=== PATIENT | female | born 1990 | race Caucasian/White ===

== ENCOUNTER → 2016-09-20 | Outpatient (REF) | payer OTHER ==
[~2016-09-20] MED LIST: ACET50TA PO; IBUP80TA PO; VITAPRTA PO; ZYRT10TA2 PO
== END ==
LOC: M LAB REF 13:35
PROVIDERS: ATTEND Advanced Practice Midwife
DX: Z12.4 Encounter for screening for malignant neoplasm of cervix (principal)

== ENCOUNTER → 2016-09-21 | Outpatient (CLI) | payer OTHER ==
[2016-09-21 08:26] LABS: BASO # 0.1 K/mm3 (0.0-0.2); BASO % 1.5 % (0.0-1.0); EOS # 0.1 K/mm3 (0.0-0.50); EOS % 2.3 % (0.0-3.0); LARGE UNSTAINED CELL # 0.2 K/mm3 (0.0-0.4); LARGE UNSTAINED CELL % 3.4 % (0.0-4.0); LYMPH # 1.6 K/mm3 (1.5-6.5); LYMPH % 26.9 % (24.0-44.0); MEAN CORPUSCULAR HEMOGLOBIN 31.1 pg (27.0-33.0); MEAN CORPUSCULAR HGB CONC 34.2 g/dl (32.0-36.5); MEAN CORPUSCULAR VOLUME 91.1 fl (80.0-96.0); MONO # 0.3 K/mm3 (0.0-0.8); MONO % 6.4 % (0.0-5.0); NEUTROPHILS # 3.1 K/mm3 (1.8-7.7); NEUTROPHILS % 59.5 % (36.0-66.0); PLATELET COUNT, AUTOMATED 269 k/mm3 (150-450); RED CELL DISTRIBUTION WIDTH 12.6 % (11.5-14.5); WHITE BLOOD COUNT 5.2 K/mm3 (4.0-10.0)
[2016-09-21 08:48] LABS: THYROXINE (T4) 10.2 UG/DL (4.5-12.0)
== END ==
LOC: M LAB 07:40
PROVIDERS: ATTEND Advanced Practice Midwife
DX: C50.919 Malignant neoplasm of unspecified site of unspecified female breast (principal); Z13.820 Encounter for screening for osteoporosis; M81.0 Age-related osteoporosis without current pathological fracture

== ENCOUNTER → 2016-11-18 | Outpatient (REF) | payer OTHER | LOC: M LAB REF 10:29 | PROVIDERS: ATTEND Physician Assistant | DX: J02.9 Acute pharyngitis, unspecified (principal) ==

== ENCOUNTER 2017-01-21 15:17 | Emergency (ER) | payer OTHER ==
[~2017-01-21] VITALS: Ht 154.9 cm; Wt 63.5 kg
[2017-01-21] MEDS ORDERED: otc prenatal vit PO (15:35)
[2017-01-21] MEDS ORDERED: ZYRT10CA PO (15:35)
[2017-01-21] MEDS ORDERED: NS 1,000 ML IV SCH (17:40)
[2017-01-21] MEDS ORDERED: ONDANSETRON 4MG/2ML VIAL (J2405) IV ONE (17:45)
[2017-01-21 18:31] LABS: BASO % 0.5 % (0.0-1.0); EOS # 0.2 K/mm3 (0.0-0.50); EOS % 2.4 % (0.0-3.0); LARGE UNSTAINED CELL # 0.2 K/mm3 (0.0-0.4); LYMPH % 24.9 % (24.0-44.0); MEAN CORPUSCULAR HEMOGLOBIN 32.9 pg (27.0-33.0); MEAN CORPUSCULAR HGB CONC 35.9 g/dl (32.0-36.5); MEAN CORPUSCULAR VOLUME 91.6 fl (80.0-96.0); MONO # 0.4 K/mm3 (0.0-0.8); MONO % 5.4 % (0.0-5.0); NEUTROPHILS # 5.2 K/mm3 (1.8-7.7); NEUTROPHILS % 64.8 % (36.0-66.0); PLATELET COUNT, AUTOMATED 287 k/mm3 (150-450); RED CELL DISTRIBUTION WIDTH 12.2 % (11.5-14.5)
[2017-01-21 18:34] LABS: INR 0.94
[2017-01-21 18:43] LABS: CONTROL LINE HCG INT CTR LINE PRESENT
[2017-01-21 18:56] LABS: ALBUMIN 3.8 GM/DL (3.2-5.2); ALBUMIN/GLOBULIN RATIO 1.15 (1.00-1.93); ALKALINE PHOSPHATASE 52 U/L (45-117); ALT/SGPT 21 U/L (12-78); ANION GAP 8 MEQ/L (8-16); AST/SGOT 22 U/L (15-37); BILIRUBIN,DIRECT < 0.1 MG/DL (0.0-0.2); BILIRUBIN,TOTAL 0.4 MG/DL (0.2-1.0); BLOOD UREA NITROGEN 12 MG/DL (7-18); CALCIUM LEVEL 8.4 MG/DL (8.5-10.1); CARBON DIOXIDE LEVEL 27 MEQ/L (21-32); CHLORIDE LEVEL 104 MEQ/L (98-107); CREATININE FOR GFR 0.79 MG/DL (0.55-1.02); GLOMERULAR FILTRATION RATE > 60.0 (>60); GLUCOSE, FASTING 89 MG/DL (70-105); POTASSIUM SERUM 3.8 MEQ/L (3.5-5.1); SODIUM LEVEL 139 MEQ/L (136-145); TOTAL PROTEIN 7.1 GM/DL (6.4-8.2)
[2017-01-21] MEDS ORDERED: ISOVUE-370 76% 100ML VIAL (Q9967) As Ordered ONE (19:13)
--- NOTE | 2017-01-21 19:40 | REP ---
Clinical: Acute lower abdominal pain. Technique: Axial contrast enhanced images from the lung bases to the pubic symphysis using 100 ml Isovue 370 intravenous contrast material with coronal and sagittal re-formations. Findings: A 2.1 cm rim enhancing left ovarian cyst is appreciated with surrounding fluid and small amount of fluid extending into the pelvis likely related to patient's symptoms and compatible with involuting, possibly ruptured ovarian cyst. The uterus and right adnexa appear normal. Lung bases are clear. Visualized heart and pericardium are normal. Liver, spleen, pancreas, gallbladder, bilateral adrenal glands and kidneys are normal. The enteric system is without obstruction or acute inflammatory process. Normal terminal ileum and appendix identified in the right lower quadrant. Pelvis demonstrates normal bladder and findings as described above. No ascites. No free air. No retroperitoneal or intraperitoneal adenopathy. Vasculature including abdominal aorta is normal. Surrounding musculoskeletal structures without focal osseous abnormality. Impression: 1. A 2.1 cm rim enhancing left ovarian cyst with surrounding fluid and trace fluid extending to the pelvis most compatible with involuting, possibly ruptured ovarian cyst and likely related to patient's symptoms. 2. Remainder examination appears normal. Signed by Mickey Martinez MD 01/21/2017 07:31 P
[2017-01-21 19:50] VITALS: BP 116/75
[2017-01-21] MEDS ORDERED: OXYCODONE/APAP 5MG/325MG(BULK FOR ED) 1 TABLET PO ONE (20:00)
[2017-01-21] MEDS ORDERED: ZOFR4TAB3 PO (20:03)
[2017-01-21] MEDS ORDERED: PERC5TAB6 PO (20:03)
== END 2017-01-21 20:15 | disposition home or self-care (01) ==
LOC: M ED 17:29
DX: N83.201 Unspecified ovarian cyst, right side (principal)
CPT/HCPCS: 74177; 80048; 80076; 81001; 83690; 84703; 85025; 85610; 86850; 86900; 86901; 87086; 96361; 96374; 99283; J2405; Q9967

== ENCOUNTER → 2017-05-23 | Outpatient (CLI) | payer OTHER ==
[~2017-05-23] MED LIST changes: +PERC5TAB12 PO; +ZOFR4TAB3 PO; +ZYRT10CA PO; +otc prenatal vit PO
--- NOTE | 2017-05-23 08:26 | REP ---
Pelvic ultrasound including transabdominal, endovaginal and Doppler ultrasound assessment: Comparison is 08/02/2016. The bladder is adequately distended. The uterus is anteverted and normal size measuring 7.4 x 3.4 x 3.4 cm. The myometrium has a mildly heterogeneous. The endometrium is not thickened measuring 6.5 mm. The ovaries are normal size. Right ovary measures 3.3 x 2.1 x 2.7 cm. The left ovary measures 2.9 x 1.3 x 2.2 cm. With Doppler assessment there is vascular flow in both ovaries with the Doppler resistive index of the intraparenchymal arteries on the left measuring 0.53 and on the right 0.60. There are a few small follicles in each ovary. No dominant ovarian mass or cyst. There is no free fluid in the pelvis. Impression: Essentially negative pelvic ultrasound. Signed by Silverio Waller MD 05/23/2017 08:18 A
== END ==
LOC: M RAD 06:44
PROVIDERS: ATTEND Advanced Practice Midwife
DX: R10.9 Unspecified abdominal pain (principal)

== ENCOUNTER → 2017-06-19 | Outpatient (CLI) | payer OTHER | LOC: M LAB 12:20 | PROVIDERS: ATTEND Advanced Practice Midwife | DX: N91.2 Amenorrhea, unspecified (principal) ==

== ENCOUNTER 2017-11-02 07:49 | Emergency (ER) | payer OTHER ==
[2017-11-02] MEDS: ACETAMINOPHEN 325 MG TAB PO (09:25)
== END 2017-11-02 10:37 | disposition home or self-care (01) ==
LOC: M ED 07:49
DX: M25.532 Pain in left wrist (principal)
CPT/HCPCS: 73110

== ENCOUNTER → 2017-11-15 | Outpatient (CLI) | payer OTHER ==
[2017-11-15 13:17] LABS: BASO % 0.2 % (0.0-1.0); EOS # 0.2 10^3/uL (0.0-0.50); EOS % 2.1 % (0.0-3.0); HEMATOCRIT 38.2 % (36.0-47.0); HEMOGLOBIN 13.8 g/dl (12.0-16.0); IMMATURE GRANULOCYTE % 0.3 % (0-3.0); LYMPH # 1.9 10^3/uL (1.5-6.5); LYMPH % 18.4 % (24.0-44.0); MEAN CORPUSCULAR HEMOGLOBIN 31.9 pg (27.0-33.0); MEAN CORPUSCULAR HGB CONC 36.1 g/dl (32.0-36.5); MEAN CORPUSCULAR VOLUME 88.4 fl (80.0-96.0); MONO # 0.7 10^3/uL (0.0-0.8); NEUTROPHILS # 7.6 10^3/uL (1.8-7.7); PLATELET COUNT, AUTOMATED 302 10^3/uL (150-450); RED BLOOD COUNT 4.32 10^6/uL (4.00-5.40); RED CELL DISTRIBUTION WIDTH 12.2 % (11.5-14.5); WHITE BLOOD COUNT 10.5 10^3/uL (4.0-10.0)
[2017-11-15 13:55] LABS: TOTAL PROTEIN,RANDOM URINE 9.1 MG/DL (0.0-12.0)
[2017-11-15 13:57] LABS: ALT/SGPT 24 U/L (12-78); AST/SGOT 14 U/L (7-37); BILIRUBIN,TOTAL 0.4 MG/DL (0.2-1.0); CREATININE FOR GFR 0.45 MG/DL (0.55-1.30); GLOMERULAR FILTRATION RATE > 60.0 (>60); LDH LACTATE DEHYDROGENASE 171 U/L (84-246); URIC ACID 1.9 MG/DL (2.6-6.0)
[2017-11-15 13:59] LABS: RUBELLA IgG QUALITATIVE IMMUNE (IMMUNE)
[2017-11-15 14:00] LABS: HBsAg Prenatal NEGATIVE (NEGATIVE)
[2017-11-15 14:28] LABS: HIV 1&2 SCREEN CENTAUR NEGATIVE (NEGATIVE)
[2017-11-15 15:00] LABS: CHLAMYDIA DNA AMPLIFICATION NEGATIVE (NEGATIVE); GC DNA AMPLIFICATION NEGATIVE (NEGATIVE)
== END ==
LOC: M LAB 12:36
DX: Z36.89 Encounter for other specified antenatal screening (principal); Z3A.10 10 weeks gestation of pregnancy
CPT/HCPCS: 84460

== ENCOUNTER 2017-12-21 07:23 | Emergency (ER) | payer OTHER ==
[2017-12-21] MEDS: NS 1,000 ML IV (08:00)
[2017-12-21] MEDS: ONDANSETRON 4MG/2ML VIAL (J2405) IV (08:20)
[2017-12-21 08:37] LABS: BASO % 0.2 % (0.0-1.0); EOS # 0.1 10^3/uL (0.0-0.50); EOS % 0.5 % (0.0-3.0); HEMATOCRIT 35.8 % (36.0-47.0); HEMOGLOBIN 12.8 g/dl (12.0-15.5); IMMATURE GRANULOCYTE % 0.5 % (0-3.0); LYMPH # 0.9 10^3/uL (1.5-6.5); LYMPH % 6.9 % (24.0-44.0); MEAN CORPUSCULAR HEMOGLOBIN 31.8 pg (27.0-33.0); MEAN CORPUSCULAR HGB CONC 35.8 g/dl (32.0-36.5); MEAN CORPUSCULAR VOLUME 88.8 fl (80.0-96.0); MONO # 0.5 10^3/uL (0.0-0.8); MONO % 3.8 % (0.0-5.0); NEUTROPHILS # 11.3 10^3/uL (1.8-7.7); NEUTROPHILS % 88.1 % (36.0-66.0); PLATELET COUNT, AUTOMATED 250 10^3/uL (150-450); RED BLOOD COUNT 4.03 10^6/uL (4.00-5.40); RED CELL DISTRIBUTION WIDTH 13.2 % (11.5-14.5); WHITE BLOOD COUNT 12.8 10^3/uL (4.0-10.0)
[2017-12-21 08:42] LABS: KETONE, URINE AUTO RFX 1+ mg/dL (NEGATIVE); MUCUS, URINE RFX SMALL (NEGATIVE); NITRITE, URINE AUTO RFX NEGATIVE (NEGATIVE); RBC, URINE AUTO RFX 2 /HPF (0-3); SPECIFIC GRAVITY UR AUTO RFX 1.028 (1.002-1.035); SQUAM EPITHELIAL CELL UR AURFX 9 /HPF (0-6); WBC, URINE AUTO RFX 2 /HPF (0-3)
[2017-12-21 08:45] LABS: LEUKOCYTE ESTERASE UR AUTO RFX 1+ (NEGATIVE)
[2017-12-21 09:01] LABS: ALBUMIN 3.2 GM/DL (3.2-5.2); ALBUMIN/GLOBULIN RATIO 0.91 (1.00-1.93); ALKALINE PHOSPHATASE 60 U/L (45-117); ALT/SGPT 22 U/L (12-78); AMYLASE 28 U/L (25-115); ANION GAP 9 MEQ/L (8-16); AST/SGOT 15 U/L (7-37); BILIRUBIN,DIRECT 0.2 MG/DL (0.0-0.2); BILIRUBIN,TOTAL 0.8 MG/DL (0.2-1.0); BLOOD UREA NITROGEN 7 MG/DL (7-18); CALCIUM LEVEL 8.3 MG/DL (8.5-10.1); CARBON DIOXIDE LEVEL 24 MEQ/L (21-32); CHLORIDE LEVEL 105 MEQ/L (98-107); CREATININE FOR GFR 0.52 MG/DL (0.55-1.30); GLOMERULAR FILTRATION RATE > 60.0 (>60); GLUCOSE, FASTING 87 MG/DL (70-100); LIPASE 62 U/L (73-393); POTASSIUM SERUM 3.8 MEQ/L (3.5-5.1); SODIUM LEVEL 138 MEQ/L (136-145); TOTAL PROTEIN 6.7 GM/DL (6.4-8.2)
== END 2017-12-21 10:10 | disposition home or self-care (01) ==
LOC: M ED 07:23
DX: O21.9 Vomiting of pregnancy, unspecified (principal); O99.89 Other specified diseases and conditions complicating pregnancy, childbirth and the puerperium; R19.7 Diarrhea, unspecified; O16.2 Unspecified maternal hypertension, second trimester; Z3A.17 17 weeks gestation of pregnancy; Z79.899 Other long term (current) drug therapy; Z88.5 Allergy status to narcotic agent
CPT/HCPCS: J2405

== ENCOUNTER → 2018-01-01 | Outpatient (CLI) | payer OTHER | LOC: M RAD 13:47 | DX: Z34.82 Encounter for supervision of other normal pregnancy, second trimester (principal) | CPT/HCPCS: 76816 ==

== ENCOUNTER → 2018-01-14 | Outpatient (CLI) | payer OTHER | LOC: M RAD 07:16 | DX: Z34.82 Encounter for supervision of other normal pregnancy, second trimester (principal); Z3A.20 20 weeks gestation of pregnancy | CPT/HCPCS: 76816 ==

== ENCOUNTER → 2018-02-18 | Outpatient (REF) | payer OTHER ==
[2018-02-18 14:48] LABS: TOTAL PROTEIN,RANDOM URINE 32.1 MG/DL (0.0-12.0)
== END ==
LOC: M LAB REF 13:04
DX: O10.012 Pre-existing essential hypertension complicating pregnancy, second trimester (principal); Z3A.00 Weeks of gestation of pregnancy not specified

== ENCOUNTER → 2018-02-18 | Outpatient (CLI) | payer OTHER ==
[2018-02-18 09:45] LABS: HEMATOCRIT 33.7 % (36.0-47.0); HEMOGLOBIN 11.7 g/dl (12.0-15.5); MEAN CORPUSCULAR HEMOGLOBIN 31.5 pg (27.0-33.0); MEAN CORPUSCULAR HGB CONC 34.7 g/dl (32.0-36.5); MEAN CORPUSCULAR VOLUME 90.8 fl (80.0-96.0); PLATELET COUNT, AUTOMATED 289 10^3/uL (150-450); RED BLOOD COUNT 3.71 10^6/uL (4.00-5.40); RED CELL DISTRIBUTION WIDTH 13.5 % (11.5-14.5); WHITE BLOOD COUNT 12.2 10^3/uL (4.0-10.0)
[2018-02-18 10:47] LABS: ALT/SGPT 21 U/L (12-78); AST/SGOT 13 U/L (7-37); BILIRUBIN,TOTAL 0.3 MG/DL (0.2-1.0); CREATININE FOR GFR 0.49 MG/DL (0.55-1.30); GLOMERULAR FILTRATION RATE > 60.0 (>60); LDH LACTATE DEHYDROGENASE 206 U/L (84-246); URIC ACID 2.7 MG/DL (2.6-6.0)
== END ==
LOC: M SMT 08:28
DX: O10.012 Pre-existing essential hypertension complicating pregnancy, second trimester (principal)
CPT/HCPCS: 84460

== ENCOUNTER → 2018-03-08 | Outpatient (CLI) | payer BC ==
[2018-03-08 12:51] LABS: BASO % 0.1 % (0.0-1.0); EOS # 0.2 10^3/uL (0.0-0.50); EOS % 1.2 % (0.0-3.0); HEMATOCRIT 33.7 % (36.0-47.0); HEMOGLOBIN 11.4 g/dl (12.0-15.5); IMMATURE GRANULOCYTE % 0.9 % (0-3.0); LYMPH # 1.8 10^3/uL (1.5-6.5); LYMPH % 12.5 % (24.0-44.0); MEAN CORPUSCULAR HEMOGLOBIN 31.4 pg (27.0-33.0); MEAN CORPUSCULAR HGB CONC 33.8 g/dl (32.0-36.5); MEAN CORPUSCULAR VOLUME 92.8 fl (80.0-96.0); MONO # 0.8 10^3/uL (0.0-0.8); MONO % 5.2 % (0.0-5.0); NEUTROPHILS # 11.5 10^3/uL (1.8-7.7); NEUTROPHILS % 80.1 % (36.0-66.0); PLATELET COUNT, AUTOMATED 267 10^3/uL (150-450); RED BLOOD COUNT 3.63 10^6/uL (4.00-5.40); RED CELL DISTRIBUTION WIDTH 13.9 % (11.5-14.5); WHITE BLOOD COUNT 14.4 10^3/uL (4.0-10.0)
[2018-03-08 13:38] LABS: GLUCOSE CHALLENGE TEST 1 HOUR 98 MG/DL (LESS THAN 140)
[2018-03-10 08:56] LABS: TYPE AND SCREEN 1 1
== END ==
LOC: M WUC 08:08
DX: O10.012 Pre-existing essential hypertension complicating pregnancy, second trimester (principal)
CPT/HCPCS: 82950

== ENCOUNTER → 2018-03-26 | Outpatient (CLI) | payer BC, OTHER | LOC: M RAD 07:17 | DX: O10.012 Pre-existing essential hypertension complicating pregnancy, second trimester (principal); Z3A.31 31 weeks gestation of pregnancy | CPT/HCPCS: 76816 ==

== ENCOUNTER 2018-04-03 06:48 | Outpatient (CLI) | payer BC, OTHER ==
[2018-04-03] MEDS ORDERED: ONDANSETRON 4 MG ORAL DISINTEGRATING TAB (Q0162 PER 1MG) PO (07:30)
[2018-04-03] MEDS: FIORICET TAB PO (07:54)
[2018-04-03] MEDS: LABETALOL 100 MG TAB PO (07:55)
[2018-04-03 08:06] LABS: BASO % 0.1 % (0.0-1.0); EOS # 0.1 10^3/uL (0.0-0.50); HEMATOCRIT 34.1 % (36.0-47.0); HEMOGLOBIN 11.7 g/dl (12.0-15.5); LYMPH # 1.5 10^3/uL (1.5-4.5); LYMPH % 11.4 % (24.0-44.0); MEAN CORPUSCULAR HEMOGLOBIN 31.4 pg (27.0-33.0); MEAN CORPUSCULAR HGB CONC 34.3 g/dl (32.0-36.5); MEAN CORPUSCULAR VOLUME 91.4 fl (80.0-96.0); MONO # 0.9 10^3/uL (0.0-0.8); MONO % 6.6 % (0.0-5.0); NEUTROPHILS # 10.7 10^3/uL (1.8-7.7); NEUTROPHILS % 79.9 % (36.0-66.0); PLATELET COUNT, AUTOMATED 233 10^3/uL (150-450); RED BLOOD COUNT 3.73 10^6/uL (4.00-5.40); RED CELL DISTRIBUTION WIDTH 14.3 % (11.5-14.5); WHITE BLOOD COUNT 13.5 10^3/uL (4.0-10.0)
[2018-04-03 08:26] LABS: ALT/SGPT 19 U/L (12-78); AST/SGOT 14 U/L (7-37); BILIRUBIN,TOTAL 0.3 MG/DL (0.2-1.0); CREATININE FOR GFR 0.49 MG/DL (0.55-1.30); GLOMERULAR FILTRATION RATE > 60.0 (>60); LDH LACTATE DEHYDROGENASE 186 U/L (84-246); URIC ACID 3.3 MG/DL (2.6-6.0)
[2018-04-03 08:31] LABS: TOTAL PROTEIN,RANDOM URINE 27.9 MG/DL (0.0-12.0)
== END 2018-04-03 09:10 | disposition home or self-care (01) ==
LOC: M LDO 06:48
DX: O99.89 Other specified diseases and conditions complicating pregnancy, childbirth and the puerperium (principal); Z3A.31 31 weeks gestation of pregnancy; R51 Headache; Z87.59 Personal history of other complications of pregnancy, childbirth and the puerperium; O13.3 Gestational [pregnancy-induced] hypertension without significant proteinuria, third trimester
CPT/HCPCS: 59025

== ENCOUNTER → 2018-04-15 | Outpatient (CLI) | payer BC, OTHER | LOC: M RAD 09:10 | DX: O10.013 Pre-existing essential hypertension complicating pregnancy, third trimester (principal); Z3A.33 33 weeks gestation of pregnancy | CPT/HCPCS: 76816 ==

== ENCOUNTER → 2018-04-28 | Outpatient (REF) | payer OTHER | LOC: M LAB REF 13:20 | DX: O10.013 Pre-existing essential hypertension complicating pregnancy, third trimester (principal) ==

== ENCOUNTER → 2018-05-06 | Outpatient (CLI) | payer BC, OTHER | LOC: M RAD 09:18 | DX: O10.012 Pre-existing essential hypertension complicating pregnancy, second trimester (principal) ==

== ENCOUNTER → 2018-11-12 | Outpatient (REF) | payer OTHER ==
[~2018-11-12] MED LIST changes: -ACET50TA PO; +COLA100C5 PO; +FIOR1CAP PO; +LABE10TAB PO; +MAPA500T2 PO; +MOTR200T44 PO; +TUMS500C PO; +ZOFR4TAB14 PO; -ZOFR4TAB3 PO; +ZYRT10CA5 PO; -ZYRT10TA2 PO
[2018-11-12 10:23] LABS: BASO % 0.5 % (0.0-1.0); EOS # 0.2 10^3/uL (0.0-0.50); EOS % 3.1 % (0.0-3.0); HEMATOCRIT 41.8 % (36.0-47.0); HEMOGLOBIN 14.3 g/dl (12.0-15.5); LYMPH # 1.5 10^3/uL (1.5-4.5); LYMPH % 25.3 % (24.0-44.0); MEAN CORPUSCULAR HEMOGLOBIN 30.2 pg (27.0-33.0); MEAN CORPUSCULAR HGB CONC 34.2 g/dl (32.0-36.5); MEAN CORPUSCULAR VOLUME 88.2 fl (80.0-96.0); MONO # 0.4 10^3/uL (0.0-0.8); MONO % 7.5 % (0.0-5.0); NEUTROPHILS # 3.7 10^3/uL (1.8-7.7); NEUTROPHILS % 63.4 % (36.0-66.0); PLATELET COUNT, AUTOMATED 322 10^3/uL (150-450); RED BLOOD COUNT 4.74 10^6/uL (4.00-5.40); WHITE BLOOD COUNT 5.8 10^3/uL (4.0-10.0)
[2018-11-12 10:38] LABS: ALBUMIN 4.2 GM/DL (3.2-5.2); ALT/SGPT 24 U/L (12-78); BILIRUBIN,TOTAL 0.8 MG/DL (0.2-1.0); BLOOD UREA NITROGEN 15 MG/DL (7-18); CALCIUM LEVEL 8.6 MG/DL (8.5-10.1); CARBON DIOXIDE LEVEL 27 MEQ/L (21-32); CHLORIDE LEVEL 106 MEQ/L (98-107); CHOLESTEROL LEVEL 143 MG/DL (<200); CHOLESTEROL RISK RATIO 3.325 (<5); CREATININE FOR GFR 0.84 MG/DL (0.55-1.30); GLOMERULAR FILTRATION RATE > 60.0 (>60); GLUCOSE, FASTING 73 MG/DL (70-100); HDL CHOLESTEROL 43 MG/DL (>40); LDL CHOLESTEROL 88 MG/DL (<100); NON-HDL-C 100 MG/DL; POTASSIUM SERUM 4.1 MEQ/L (3.5-5.1); SODIUM LEVEL 140 MEQ/L (136-145); TOTAL PROTEIN 7.3 GM/DL (6.4-8.2); TRIGLYCERIDES LEVEL 59 MG/DL (<150)
[2018-11-12 10:46] LABS: HEMOGLOBIN A1c 4.8 %
== END ==
LOC: M LAB REF 09:40
PROVIDERS: ATTEND Physician Assistant
DX: I10 Essential (primary) hypertension (principal)

== ENCOUNTER → 2020-01-27 | Outpatient (CLI) | payer BC, OTHER ==
--- NOTE | 2020-01-28 04:15 | REP ---
Clinical: Epigastric pain. Technique: Real time santos scale ultrasound examination using curved array transducer. Findings: Liver and visualized pancreas are normal in contour, size, echogenicity without focal hepatic or pancreatic lesion identified. Gallbladder is normal and without gallstones, wall thickening, or pericholecystic fluid. No biliary ductal dilatation is appreciated and the common bile duct measures 3.6 mm diameter. Right kidney is normal in reniform shape without hydronephrosis and measures 9.7 x 4.5 x 4.7 cm. Visualized portions of the abdominal aorta appear normal. No ascites. Impression: Normal limited abdominal ultrasound. Electronically Signed by Mickey Martinez MD 01/28/2020 04:07 A
== END ==
LOC: M RAD 07:57
PROVIDERS: ATTEND Surgery
DX: R10.13 Epigastric pain (principal)

== ENCOUNTER → 2020-05-18 | Outpatient (CLI) | payer BC, OTHER ==
[2020-05-18 16:14] LABS: BASO % 0.5 % (0.0-1.0); EOS # 0.2 10^3/uL (0.0-0.5); HEMATOCRIT 37.4 % (36.0-47.0); HEMOGLOBIN 12.8 g/dl (12.0-15.5); LYMPH % 22.6 % (24.0-44.0); MEAN CORPUSCULAR HEMOGLOBIN 32.1 pg (27.0-33.0); MEAN CORPUSCULAR HGB CONC 34.2 g/dl (32.0-36.5); MEAN CORPUSCULAR VOLUME 93.7 fl (80.0-96.0); MONO # 0.8 10^3/uL (0.0-0.8); MONO % 8.9 % (0.0-5.0); NEUTROPHILS # 5.8 10^3/uL (1.5-8.5); NEUTROPHILS % 65.5 % (36.0-66.0); PLATELET COUNT, AUTOMATED 281 10^3/uL (150-450); RED BLOOD COUNT 3.99 10^6/uL (4.00-5.40); WHITE BLOOD COUNT 8.8 10^3/uL (4.0-10.0)
[2020-05-18 16:36] LABS: CREATININE,RANDOM URINE 21.9 MG/DL; TOTAL PROTEIN,RANDOM URINE 5.8 MG/DL (0.0-12.0)
[2020-05-18 16:37] LABS: ALT/SGPT 24 U/L (12-78); BILIRUBIN,TOTAL 0.3 MG/DL (0.2-1.0); CREATININE FOR GFR 0.71 MG/DL (0.55-1.30); GLOMERULAR FILTRATION RATE > 60.0 (>60); LDH LACTATE DEHYDROGENASE 190 U/L (84-246); URIC ACID 2.1 MG/DL (2.6-6.0)
[2020-05-18 17:26] LABS: HEPATITIS C VIRUS ABY INDEX 0.1 INDEX (<0.8)
[2020-05-18 17:27] LABS: HIV 1&2 SCREEN CENTAUR NEGATIVE (NEGATIVE)
[2020-05-18 19:12] LABS: CHLAMYDIA DNA AMPLIFICATION NEGATIVE (NEGATIVE); GC DNA AMPLIFICATION NEGATIVE (NEGATIVE)
== END ==
LOC: M LAB 15:39
PROVIDERS: ATTEND Advanced Practice Midwife
DX: Z34.91 Encounter for supervision of normal pregnancy, unspecified, first trimester (principal); Z3A.00 Weeks of gestation of pregnancy not specified

== ENCOUNTER → 2020-08-09 | Outpatient (CLI) | payer BC ==
[~2020-08-09] MED LIST changes: +LABE100T4 PO; -LABE10TAB PO
--- NOTE | 2020-08-09 12:57 | REP ---
INDICATION: ANATOMY. TECHNIQUE: Real-time sonographic evaluation of the gravid uterus performed. FINDINGS: Estimated gestational age 19 weeks 0 days, EDC 01/03/2021. These measurements indicate appropriate growth. Presentation: Cephalic Placenta posterior, grade 1, without evidence of placenta previa. heart rate is recorded at 153 beats per minute. Amniotic fluid is subjectively normal. Closed cervical length is measured at 3.8 cm. Biometry chart: BPD: 43 mm, 19 weeks 1 days, 53rd percentile. HC: 167 mm, 19 weeks 3 days, 62nd percentile AC: 152 mm, 20 weeks 3 days, 81st percentile Femur length: 33 mm, 20 weeks 2 days, 81st percentile HC to AC ratio: 1.10, normal range 1.06-1.25. Estimated weight: 340g, over 97th percentile. anatomy: Cranium: Grossly normal Lateral Ventricles/Choroid Plexus: Grossly normal Posterior Fossa/Cerebellum: Grossly normal Nose/lips/profile: Grossly normal Four chamber heart: Grossly normal Right ventricular outflow tract: Grossly normal Left ventricular outflow tract: Grossly normal Left-sided stomach: Grossly normal Kidneys: There is bilateral pelviectasis, AP diameter of the renal pelves is 4 mm maximally. Ill-defined increased echogenicity in the pelvis could represent bowel. Recommend follow-up. Bladder: Grossly normal Cord Insertion: Grossly normal 3 vessel cord: Grossly normal Spine: Grossly normal IMPRESSION: Viable single intrauterine gestation as above. <Electronically signed by Silverio Ortiz > 08/09/20 [id number]
== END ==
LOC: M WHC 08:16
PROVIDERS: ATTEND Advanced Practice Midwife
DX: O10.012 Pre-existing essential hypertension complicating pregnancy, second trimester (principal); Z3A.19 19 weeks gestation of pregnancy

== ENCOUNTER → 2020-08-12 | Outpatient (CLI) | payer BC | LOC: M PLALAB 09:14 | PROVIDERS: ATTEND Advanced Practice Midwife | DX: O28.3 Abnormal ultrasonic finding on antenatal screening of mother (principal); Z3A.00 Weeks of gestation of pregnancy not specified ==

== ENCOUNTER → 2020-09-06 | Outpatient (CLI) | payer BC ==
--- NOTE | 2020-09-06 18:26 | REP ---
INDICATION: F/U ECHOGENICITY SEEN IN ABDOMEN COMPARISON: 08/09/2020 TECHNIQUE: Transabdominal obstetrical ultrasound with color Doppler evaluation. FINDINGS: Examination demonstrates a single live intrauterine in cephalic presentation. motion is identified by technologist. Placenta is noted posterior and grade 1 without evidence for placenta previa or abruption. Amniotic fluid volume is normal. Cervix measures 4.0 cm in length and appears closed.. Gestational age by LMP 23 weeks 0 days with ARMEN 01/03/2021. Gestational age by current measurements 24 weeks 1 day with ARMEN 12/26/2020. FHR equals 153 beats per minute. Estimated weight 659 grams (89thpercentile). Anatomical assessment demonstrates normal structures including normal appearance of the bilateral kidneys with mild pelviectasis in normal range. Previously identified echogenic area within the pelvis is not visualized and may have represented bowel. IMPRESSION: Single live intrauterine in cephalic presentation. No gross abnormalities are identified. <Electronically signed by Mickey Martinez > 09/06/20 [id number]
== END ==
LOC: M WHC 15:14
PROVIDERS: ATTEND Advanced Practice Midwife
DX: O10.012 Pre-existing essential hypertension complicating pregnancy, second trimester (principal); Z3A.24 24 weeks gestation of pregnancy

== ENCOUNTER → 2020-09-29 | Outpatient (CLI) | payer BC, OTHER ==
[2020-09-29 08:26] LABS: HEMATOCRIT 36.5 % (36.0-47.0); HEMOGLOBIN 12.2 g/dl (12.0-15.5); MEAN CORPUSCULAR HEMOGLOBIN 31.9 pg (27.0-33.0); MEAN CORPUSCULAR HGB CONC 33.4 g/dl (32.0-36.5); MEAN CORPUSCULAR VOLUME 95.3 fl (80.0-96.0); PLATELET COUNT, AUTOMATED 245 10^3/uL (150-450); RED BLOOD COUNT 3.83 10^6/uL (4.00-5.40); WHITE BLOOD COUNT 12.6 10^3/uL (4.0-10.0)
== END ==
LOC: M LAB 06:39
PROVIDERS: ATTEND Advanced Practice Midwife
DX: O10.012 Pre-existing essential hypertension complicating pregnancy, second trimester (principal); Z3A.00 Weeks of gestation of pregnancy not specified
CPT/HCPCS: 36415; 82950; 85027; 86850; 86900; 86901; J2790

== ENCOUNTER → 2020-11-08 | Outpatient (CLI) | payer BC ==
--- NOTE | 2020-11-08 10:10 | REP ---
INDICATION: ESSENTIAL HYPERTENSION,GROWTH,TC. COMPARISON: 09/06/2020. TECHNIQUE: Real-time sonographic evaluation of the gravid uterus performed. FINDINGS: Estimated gestational age is32 weeks 0 days, EDC 01/03/2021. Today's measurements indicate appropriate growth. Presentation: Cephalic Placenta posterior, grade 2, without evidence of placenta previa. heart rate is recorded at 161 beats per minute. Amniotic fluid is subjectively normal. TC 11.8, normal range 8.6-24.2. Closed cervical length is measured at 3.1 cm. Biometry chart: BPD: 80 mm, 31 weeks 6 days, 49th percentile. HC: 299 mm, 33 weeks 1 days, 66th percentile AC: 300 mm, 34 weeks 0 days, 80th percentile Femur length: 65 mm, 33 weeks 4 days, 74th percentile HC to AC ratio: 1.00, normal range 0.95-1.14. Estimated weight: 2225g, 86th percentile. IMPRESSION: Viable single intrauterine gestation as above. <Electronically signed by Silverio Ortiz > 11/08/20 [id number]
== END ==
LOC: M WHC 07:46
PROVIDERS: ATTEND Advanced Practice Midwife
DX: O10.019 Pre-existing essential hypertension complicating pregnancy, unspecified trimester (principal); Z3A.32 32 weeks gestation of pregnancy

== ENCOUNTER → 2020-11-24 | Outpatient (REF) | LOC: M LABSMTC 09:50 | PROVIDERS: ATTEND Pediatrics | DX: Z11.52 Encounter for screening for COVID-19 (principal) ==

== ENCOUNTER → 2020-11-28 | Outpatient (CLI) | payer BC ==
--- NOTE | 2020-11-28 16:49 | REP ---
INDICATION: HYPERTENSION,GROWTH,TC. COMPARISON: Comparison study November 08, 2020.. TECHNIQUE: Transabdominal obstetric sonography. FINDINGS: Scanning through the gravid uterus demonstrates a viable single intrauterine gestation in cephalic lie. motion is observed and heart rate is recorded at 155 beats per minute. A posterior placenta is seen, grade 2, without evidence of placenta previa. Closed cervical length is measured at 3.6 cm transabdominally. No extrauterine abnormality is observed. Amniotic fluid is subjectively normal. TC is normal 10.9 cm.. . Biometry chart: BPD 8.6 cm, 34 weeks 4 days Head circumference 33.4 cm, 38 weeks 1 day Abdominal circumference 36.3 cm, 40 weeks 1 day Femur length 7.0 cm, 35 weeks 6 days Humeral length 6.1 cm, 35 weeks 4 days HC AC ratio 0.92 (0.942 1.13) Cephalic index normal 0.70 Estimated weight 3543 g, 7 lb 12 oz, greater than 97th percentile for 34 weeks 6 days IMPRESSION: Viable single intrauterine gestation at 36 weeks 6 days by today's composite sonographic criteria. ARMEN by today's sonography December 20, 2020. No complication identified. Expected gestational age estimate based on known ARMEN of January 03, 2021 34 weeks 6 days. Estimated weight in 97 percentile. <Electronically signed by Dg Marley > 11/28/20 [id number]
== END ==
LOC: M WHC 08:30
PROVIDERS: ATTEND Advanced Practice Midwife
DX: O10.019 Pre-existing essential hypertension complicating pregnancy, unspecified trimester (principal); Z3A.34 34 weeks gestation of pregnancy

== ENCOUNTER → 2020-12-14 | Outpatient (CLI) | payer BC, OTHER | LOC: M LABSMTC 12:19 | PROVIDERS: ATTEND Specialist | DX: Z20.822 Contact with and (suspected) exposure to COVID-19 (principal); Z3A.37 37 weeks gestation of pregnancy ==

== ENCOUNTER → 2020-12-16 | Outpatient (CLI) | payer BC ==
--- NOTE | 2020-12-16 13:59 | REP ---
INDICATION: GROWTH/TC. TECHNIQUE: Transabdominal FINDINGS: Multiple ultrasonographic images of the gravid uterus shows a single living intrauterine gestation in the cephalic presentation. Doppler interrogation of the heart shows a heart rate of 155 beats per minute. The placenta is posterior and not low-lying. The subjective amniotic fluid volume is within normal limits. The calculated amniotic fluid index is 12.3 with an expected range of 7.4-24.2. BPD 9.0 cm (36 weeks 3 days) HC 33.4 cm (38 weeks 1 day) AC 37.7 cm (41 weeks 5 days) FL 7.4 cm (37 weeks 5 days) The estimated weight is 3886 g which is greater than the 97th percentile for 37 week 3 day gestational age. IMPRESSION: Single living intrauterine gestation as described above with an estimated gestational age of 38 weeks 4 days via composite criteria and an estimated date of delivery of 12/26/2020 based today's exam. <Electronically signed by Blaine Kuhn > 12/16/20 [id number]
== END ==
LOC: M WHC 12:59
PROVIDERS: ATTEND Advanced Practice Midwife
DX: O10.013 Pre-existing essential hypertension complicating pregnancy, third trimester (principal); Z3A.38 38 weeks gestation of pregnancy

== ENCOUNTER 2020-12-21 21:57 | Inpatient (IN) | payer BC, OTHER ==
[~2020-12-21] VITALS: Ht 154.9 cm; Wt 93.3 kg
[2020-12-21] MEDS ORDERED: METHYLERGONOVINE MALEATE 0.2 MG/ML VIAL (J2210) IM PRN (23:10)
[2020-12-21] MEDS ORDERED: miSOPROStol 50MCG 1/2 TABLET PO SCH (23:10)
[2020-12-21] MEDS ORDERED: OXYTOCIN DRIP 30 UNITS in IV 1 EA IV PRN (23:10)
[2020-12-21] MEDS ORDERED: LIDOCAINE 1% MDV 20ML VIAL INFIL PRN (23:10)
[2020-12-21 23:54] VITALS: BP 120/69
[2020-12-22] VITALS (32 sets, daily range): BP systolic 100–172; BP diastolic 46–105
[2020-12-22] MEDS ORDERED: LABETALOL 100MG TAB PO ONE (00:05)
[2020-12-22 00:06] LABS: HEMATOCRIT 37.4 % (36.0-47.0); HEMOGLOBIN 12.8 g/dl (12.0-15.5); MEAN CORPUSCULAR HEMOGLOBIN 30.8 pg (27.0-33.0); MEAN CORPUSCULAR HGB CONC 34.2 g/dl (32.0-36.5); MEAN CORPUSCULAR VOLUME 89.9 fl (80.0-96.0); PLATELET COUNT, AUTOMATED 232 10^3/uL (150-450); RED BLOOD COUNT 4.16 10^6/uL (4.00-5.40); WHITE BLOOD COUNT 13.3 10^3/uL (4.0-10.0)
[2020-12-22] MEDS ORDERED: diphenhydrAMINE 25MG CAP PO ONE (00:10)
[2020-12-22 00:18] LABS: ALT/SGPT 20 U/L (12-78); BILIRUBIN,TOTAL 0.4 MG/DL (0.2-1.0); CREATININE FOR GFR 0.41 MG/DL (0.55-1.30); GLOMERULAR FILTRATION RATE > 60.0 (>60); LDH LACTATE DEHYDROGENASE 199 U/L (84-246); URIC ACID 3.3 MG/DL (2.6-6.0)
[2020-12-22] MEDS ORDERED: OXYTOCIN DRIP 30 UNITS in IV 1 EA IV SCH ×2 (04:00→11:20)
[2020-12-22] MEDS ORDERED: LACTATED RINGER'S 1000 ML IV ONE (04:15)
[2020-12-22] MEDS: LR 1,000 ML IV SCH ×2 (04:16→08:05)
[2020-12-22] MEDS ORDERED: FENTANYL 2MCG/ML ROPIVACAINE 0.2% IN 0.9% NACL 100ML IVBAG As Ordered ONE (05:33)
[2020-12-22] MEDS ORDERED: LACTATED RINGER'S 1000 ML IV PRN (06:10)
[2020-12-22] MEDS ORDERED: NALOXONE INJ 0.4MG/1ML VIAL (J2310 PER 1MG) IV PRN (06:10)
[2020-12-22] MEDS ORDERED: diphenhydrAMINE 50MG/ML VIAL (J1200) IV PRN (06:10)
[2020-12-22] MEDS ORDERED: EPIDURAL COMMENT XX SCH (06:10)
[2020-12-22] MEDS ORDERED: EPIDURAL/PCA KEYS XX PRN (06:10)
[2020-12-22] MEDS ORDERED: REFRIGERATOR IV KEYS XX PRN (06:10)
[2020-12-22] MEDS ORDERED: FENTANYL/ROPIVACAINE/NACL BAG 100 ML EPIDURAL SCH (06:10)
[2020-12-22] MEDS ORDERED: ONDANSETRON 4MG/2ML VIAL IV PRN (06:10)
--- NOTE | 2020-12-22 08:13 | HPE ---
HISTORY AND PHYSICAL DATE OF ADMISSION: 12/21/2020 HISTORY OF PRESENT ILLNESS: Jase is a 30-year-old 3 para 2-0-0-2 at 38 and 1/7th weeks gestation, EDC of 01/03/2021 based on first trimester ultrasound. She presents to Labor and Delivery today for induction of labor due to chronic hypertension. Her hypertension has been well-controlled with Labetalol 100 mg p.o. b.i.d. She reports some occasional contractions, denies vaginal bleeding or leakage of fluid. The fetus has been active. Her care initiated at [facility], [place] in the first trimester has been appropriate throughout with reassuring antepartal testing as well as appropriate growth ultrasounds. OBSTETRIC HISTORY: In January 2015, 37 weeks, 7 pound, 10 ounce male, vaginal delivery, induction for preeclampsia. May 17, 2018, 38 weeks, 7 pound, 11 ounce female, vaginal delivery following an induction for gestational hypertension. OBSTETRIC LABS: A negative, antibody screen negative, syphilis negative, gonorrhea and chlamydia negative, hepatitis B surface antigen negative, hepatitis C antibody non-reactive, HIV negative, rubella immune, gestational diabetic screening is 90. Urine culture: No growth. GBS negative. She is to undergo noninvasive testing with panorama which demonstrated low risk aneuploidy female fetus. The patient was not aware of the sex. PAST MEDICAL HISTORY: Preeclampsia, chronic hypertension, gestational hypertension, childhood asthma, childhood varicella. PAST SURGICAL HISTORY: Knee surgery x2, elbow surgery, tonsillectomy. FAMILY HISTORY: Hypertension, high cholesterol, hyperlipidemia and thyroid disease. SOCIAL HISTORY: The patient is . She is a nonsmoker. She denies alcohol and drug use. No history of sexually transmitted infections. She denies a history of abuse, physical, sexual and emotional. CURRENT MEDICATIONS: 1. Labetalol 100 mg p.o. b.i.d. 2. vitamins. 3. Aspirin 81 mg daily. ALLERGIES: Codeine. OBJECTIVE: BP is 132/89. She is alert and oriented x3. heart rate is 150 with moderate variability, positive accelerations, negative decelerations, no __ or regular contractions. Her abdomen is gravid, cephalic presentation. Estimated weight 3800 grams. Sterile vaginal exam: 2 cm dilated, 50% effaced, -3 station, posterior and soft. No show with the exam. ASSESSMENT: Intrauterine at 38 and 1/7th weeks. heart rate Category 1, chronic hypertension. PLAN; Admit the patient to labor and delivery, out of bed ad waylon, regular diet at this time, saline lock, routine laboratories with the addition of preeclamptic profile. Plan to start Misoprostol 50 mcg p.o. for cervical ripening, may consider assisted rupture of membranes for labor augmentation, likely IV Pitocin for labor induction. The risks, benefits and alternatives have been reviewed with the patient and her . They have had all of their questions answered. She has been verbally consented for emergency surgery and blood products if they are necessary. I do anticipate cervical ripening, labor and a spontaneous vaginal delivery.
[2020-12-22] MEDS ORDERED: LABETALOL 200 MG TAB PO SCH (09:00)
[2020-12-22] MEDS: ePHEDrine SULFATE 25 MG/5 ML(5MG/ML) SYRINGE IV PRN ×3 (09:05→09:21)
--- NOTE | 2020-12-22 11:18 | DNPDOC ---
[facility] Delivery Note Delivery Note DATE OF DELIVERY: 12/22/2020 TIME OF : 1039 GENDER: Female APGARS: 8 and 9 WEIGHT: 4210 grams or 9 pounds 5ounces. LACERATIONS: 2MLL ANESTHESIA: epiduralnone ESTIMATED BLOOD LOSS: 300ml COUNTS: 5 laparotomy sponges accounted for prior to after delivery. 1 sharps removed from delivery field. DELIVERY NOTE: On on 12/22/2020 Mrs Hernandez, a 30-year-old 3 now para 3 had a spontaneous vaginal delivery of a liveborn female Apgars 8 and 9 weight was 9 lbs. 5 oz. or 4210 g. Head was delivered occiput anterior (OA), followed by delivery of the shoulders and corpus. was handed to mom with a good cry. Cord was clamped times two and was cut by support person under my direction. Placenta was then drained and delivered grossly intact. A premixed bag of 500 mL of normal saline with 30 units of Pitocin was then bolused along with uterine massage until the uterus was firm. On inspection there was a 2MLL that was repaired with 3-0 Vicryl. On reinspection, cervix, vagina, perineum was grossly intact and hemostatic. Mom and baby in recovery on stable condition. ABDELRAHMAN BERG MD. Dec 22, 2020 11:18
[2020-12-22] MEDS ORDERED: MOM 30ML SUSPENSION UDC PO PRN (11:20)
[2020-12-22] MEDS ORDERED: MEASLES,MUMPS,RUBELLA VACCINE INJ (MMR-II) (90707) SC SCH (11:20)
[2020-12-22] MEDS ORDERED: DIBUCAINE 1% OINTMENT 30GM TOP PRN (11:20)
[2020-12-22] MEDS ORDERED: METHYLERGONOVINE MALEATE 0.2 MG TAB PO PRN (11:20)
[2020-12-22] MEDS ORDERED: RHOGAM 300 MCG (1500 IU) INJ (J2790) IM SCH (11:20)
[2020-12-22] MEDS ORDERED: IBUPROFEN 600MG TAB PO PRN (11:20)
[2020-12-22] MEDS ORDERED: ANUSOL HC CREAM 30GM TOP PRN (11:20)
[2020-12-22] MEDS: IBUPROFEN 800 MG TAB PO PRN ×2 (14:03→22:23)
[2020-12-22] MEDS: ACETAMINOPHEN TAB 650MG DOSE (2X325MG) PO PRN ×2 (15:50→20:36)
[2020-12-22] MEDS ORDERED: SLF 3 ML SYR IV PRN (15:55)
[2020-12-22] MEDS: DOCUSATE SODIUM 100MG CAPSULE PO PRN (20:36)
[2020-12-22] MEDS: SLF 3 ML SYR IV SCH (20:37)
[2020-12-23] MEDS: ACETAMINOPHEN 500 MG TAB PO PRN ×3 (02:25→19:22)
[2020-12-23] MEDS: SLF 3 ML SYR IV SCH ×3 (05:31→22:00)
--- NOTE | 2020-12-23 05:33 | IPNPDOC ---
Progress Note Date of Service: Dec 23, 2020 Day#: 1 Progress Note SUBJECT: Doing well without complaints. Ambulating, voiding and pain is well-c ontrolled. Reports minimal lochia. OBJECTIVE: VITAL SIGNS: Within normal limits, afebrile. Alert and oriented times three. Abdomen: Fundus firm at U-2. Soft, NTTP. Ext: neg calf tenderness. ASSESSMENT: day #1 status post . Recovering in stable condition. PLAN: 1. Continue routine care 2. Discharge plans for tomorrow VS, I&O, 24H, Fishbone Vital Signs/I&O Vital Signs Date Time Temp Pulse Resp B/P (MAP) Pulse Ox O2 Delivery O2 Flow Rate FiO2 12/22/20 18:00 99.2 84 18 100/55 (70) 98 Room Air I&O- Last 24 Hours up to 6 AM 12/23/20 06:00 Intake Total 4100 ml Output Total 1200 ml Balance 2900 ml ABDELRAHMAN BERG MD. Dec 23, 2020 05:32
[2020-12-23] MEDS: IBUPROFEN 800 MG TAB PO PRN ×2 (05:52→15:15)
[2020-12-23 06:00] VITALS: BP 116/61
[2020-12-23] MEDS: PRENATAL VITAMINS CHEWABLE TABLET PO SCH (07:31)
[2020-12-23 18:00] VITALS: BP 132/86
[2020-12-23] MEDS: DOCUSATE SODIUM 100MG CAPSULE PO PRN (19:22)
[2020-12-24] MEDS: IBUPROFEN 800 MG TAB PO PRN ×2 (01:05→10:32)
[2020-12-24 06:00] VITALS: BP 111/70
[2020-12-24] MEDS: SLF 3 ML SYR IV SCH (06:00)
[2020-12-24] MEDS: PRENATAL VITAMINS CHEWABLE TABLET PO SCH (08:07)
[2020-12-24] MEDS: ACETAMINOPHEN 500 MG TAB PO PRN (08:07)
== END 2020-12-24 14:30 | disposition home or self-care (01) | DRG 560 ==
LOC: M LDI 21:57 → M OBS 12-22 13:00
PROVIDERS: ADMIT Advanced Practice Midwife; ATTEND Obstetrics & Gynecology
PROC: 3E0P7GC Introduction of Other Therapeutic Substance into Female Reproductive, Via Natural or Artificial Opening (ICD-10-PCS; 2020-12-21)
PROC: 10E0XZZ Delivery of Products of Conception, External Approach (ICD-10-PCS; principal; 2020-12-22)
PROC: 0KQM0ZZ Repair Perineum Muscle, Open Approach (ICD-10-PCS; 2020-12-22)
DX: O10.02 Pre-existing essential hypertension complicating childbirth (principal); O70.1 Second degree perineal laceration during delivery; Z3A.38 38 weeks gestation of pregnancy; Z37.0 Single live birth

== ENCOUNTER → 2021-05-29 | Outpatient (CLI) | payer BC, OTHER ==
[2021-05-29 07:44] LABS: BASO # 0.1 10^3/uL (0.0-0.2); BASO % 0.9 % (0.0-1.0); EOS # 0.3 10^3/uL (0.0-0.5); EOS % 4.4 % (0.0-3.0); HEMATOCRIT 42.2 % (36.0-47.0); HEMOGLOBIN 14.6 g/dl (12.0-15.5); LYMPH # 1.4 10^3/uL (1.5-5.0); MEAN CORPUSCULAR HEMOGLOBIN 30.9 pg (27.0-33.0); MEAN CORPUSCULAR HGB CONC 34.6 g/dl (32.0-36.5); MEAN CORPUSCULAR VOLUME 89.2 fl (80.0-96.0); MONO # 0.5 10^3/uL (0.0-0.8); MONO % 8.6 % (2.0-8.0); NEUTROPHILS # 3.5 10^3/uL (1.5-8.5); NEUTROPHILS % 61.7 % (36.0-66.0); PLATELET COUNT, AUTOMATED 288 10^3/uL (150-450); RED BLOOD COUNT 4.73 10^6/uL (4.00-5.40); WHITE BLOOD COUNT 5.7 10^3/uL (4.0-10.0)
[2021-05-29 08:24] LABS: ALBUMIN 4.2 GM/DL (3.2-5.2); ALT/SGPT 32 U/L (12-78); BILIRUBIN,TOTAL 0.7 MG/DL (0.2-1.0); BLOOD UREA NITROGEN 11 MG/DL (7-18); CALCIUM LEVEL 8.6 MG/DL (8.5-10.1); CARBON DIOXIDE LEVEL 29 MEQ/L (21-32); CHLORIDE LEVEL 107 MEQ/L (98-107); CHOLESTEROL LEVEL 187 MG/DL (<200); CHOLESTEROL RISK RATIO 3.596 (<5); CREATININE FOR GFR 0.89 MG/DL (0.55-1.30); FREE T4 1.12 NG/DL (0.76-1.46); GLOMERULAR FILTRATION RATE > 60.0 (>60); GLUCOSE, FASTING 82 MG/DL (70-100); HDL CHOLESTEROL 52 MG/DL (>40); LDL CHOLESTEROL 120 MG/DL (<100); NON-HDL-C 135 MG/DL; POTASSIUM SERUM 4.2 MEQ/L (3.5-5.1); SODIUM LEVEL 140 MEQ/L (136-145); THYROID STIMULATING HORMONE 0.242 uIU/ML (0.358-3.740); TOTAL PROTEIN 7.4 GM/DL (6.4-8.2); TRIGLYCERIDES LEVEL 76 MG/DL (<150)
[2021-05-29 08:25] LABS: HEMOGLOBIN A1c 4.8 %
[2021-05-29 10:41] LABS: TOTAL 25(OH) VITAMIN D 36.4 NG/ML (30.0-100.0)
== END ==
LOC: M LAB 06:16
PROVIDERS: ATTEND Physician Assistant
DX: Z13.29 Encounter for screening for other suspected endocrine disorder (principal)

== ENCOUNTER → 2021-07-05 | Outpatient (REF) | LOC: M EMP 14:57 | PROVIDERS: ATTEND Family Medicine | DX: Z20.822 Contact with and (suspected) exposure to COVID-19 (principal) ==

== ENCOUNTER 2021-07-31 08:45 | Outpatient (RCR) | END 2021-07-31 15:00 | disposition home or self-care (01) | LOC: M EMP 08:45 | PROVIDERS: ATTEND Pediatrics | DX: Z11.52 Encounter for screening for COVID-19 (principal) ==

== ENCOUNTER → 2021-08-08 | Outpatient (REF) | LOC: M EMP 09:13 | PROVIDERS: ATTEND Family Medicine | DX: Z20.822 Contact with and (suspected) exposure to COVID-19 (principal) ==

== ENCOUNTER → 2021-11-29 | Outpatient (CLI) | payer BC, OTHER | LOC: M WHC 08:20 | PROVIDERS: ATTEND Advanced Practice Midwife | DX: N63.12 Unspecified lump in the right breast, upper inner quadrant (principal) | CPT/HCPCS: 76642; 77065; G0279 ==

== ENCOUNTER → 2021-12-18 | Outpatient (REF) | LOC: M EMP 14:31 | PROVIDERS: ATTEND Family Medicine | DX: Z11.52 Encounter for screening for COVID-19 (principal) ==

== ENCOUNTER → 2022-02-09 | Outpatient (CLI) | payer BC, OTHER | LOC: M PLALAB 13:07 | PROVIDERS: ATTEND Surgery | DX: Z13.79 Encounter for other screening for genetic and chromosomal anomalies (principal) ==

== ENCOUNTER → 2022-02-14 | Outpatient (CLI) | payer BC, OTHER ==
[~2022-02-14] MED LIST changes: +CETI10CA2 PO; +VITMTA PO
== END ==
LOC: M WHC 10:49
PROVIDERS: ATTEND Surgery
DX: Z12.31 Encounter for screening mammogram for malignant neoplasm of breast (principal); Z80.3 Family history of malignant neoplasm of breast; Z80.0 Family history of malignant neoplasm of digestive organs

== ENCOUNTER → 2022-02-14 | Outpatient (CLI) | payer BC, OTHER ==
[2022-02-14 14:36] VITALS: BP 120/76
== END ==
LOC: M WHCPRO 12:57
PROVIDERS: ATTEND Surgery
DX: R92.8 Other abnormal and inconclusive findings on diagnostic imaging of breast (principal); N63.12 Unspecified lump in the right breast, upper inner quadrant
CPT/HCPCS: 19083; 77065; 88305; G0279

== ENCOUNTER → 2022-05-16 | Outpatient (REF) | payer BC, OTHER ==
[~2022-05-16] MED LIST changes: -LABE100T4 PO; +LABE100T6 PO
[2022-05-16 10:08] LABS: BASO # 0.1 10^3/uL (0.0-0.2); BASO % 1.1 % (0.0-1.0); EOS # 0.2 10^3/uL (0.0-0.5); HEMATOCRIT 42.9 % (36.0-47.0); HEMOGLOBIN 14.8 g/dl (12.0-15.5); LYMPH # 1.5 10^3/uL (1.5-5.0); LYMPH % 26.9 % (24.0-44.0); MEAN CORPUSCULAR HEMOGLOBIN 31.8 pg (27.0-33.0); MEAN CORPUSCULAR HGB CONC 34.5 g/dl (32.0-36.5); MEAN CORPUSCULAR VOLUME 92.1 fl (80.0-96.0); MONO # 0.5 10^3/uL (0.0-0.8); MONO % 7.9 % (2.0-8.0); NEUTROPHILS # 3.4 10^3/uL (1.5-8.5); NEUTROPHILS % 59.9 % (36.0-66.0); PLATELET COUNT, AUTOMATED 316 10^3/uL (150-450); RED BLOOD COUNT 4.66 10^6/uL (4.00-5.40); WHITE BLOOD COUNT 5.7 10^3/uL (4.0-10.0)
[2022-05-16 10:36] LABS: HEMOGLOBIN A1c 4.8 %
[2022-05-16 10:48] LABS: ALBUMIN 4.2 GM/DL (3.2-5.2); ALT/SGPT 23 U/L (12-78); BILIRUBIN,TOTAL 0.5 MG/DL (0.2-1.0); BLOOD UREA NITROGEN 15 MG/DL (7-18); CALCIUM LEVEL 9.7 MG/DL (8.5-10.1); CARBON DIOXIDE LEVEL 29 MEQ/L (21-32); CHLORIDE LEVEL 104 MEQ/L (98-107); CREATININE FOR GFR 0.71 MG/DL (0.55-1.30); FREE T4 1.12 NG/DL (0.76-1.46); GLOMERULAR FILTRATION RATE > 60.0 (>60); GLUCOSE, FASTING 83 MG/DL (70-100); POTASSIUM SERUM 4.6 MEQ/L (3.5-5.1); SODIUM LEVEL 136 MEQ/L (136-145); THYROID STIMULATING HORMONE 0.365 uIU/ML (0.358-3.740); TOTAL PROTEIN 7.6 GM/DL (6.4-8.2)
[2022-05-16 11:11] LABS: TOTAL 25(OH) VITAMIN D 48.6 NG/ML (30.0-100.0); VITAMIN B12 LEVEL 646 PG/ML (247-911)
[2022-05-17 07:07] LABS: FOLATE 15.5 ng/mL (>3.0)
== END ==
LOC: M LAB REF 09:53
PROVIDERS: ATTEND Physician Assistant
DX: Z13.29 Encounter for screening for other suspected endocrine disorder (principal)

== ENCOUNTER → 2022-05-18 | Outpatient (CLI) | payer BC, OTHER | LOC: M SFHCWAGY 18:34 | PROVIDERS: ATTEND Advanced Practice Midwife | DX: Z12.4 Encounter for screening for malignant neoplasm of cervix (principal) | CPT/HCPCS: 87624; G0123 ==

== ENCOUNTER → 2022-11-08 | Outpatient (CLI) | payer BC, OTHER ==
[~2022-11-08] MED LIST changes: +PROHANCE 279.3MG/ML 15ML VIAL ONE
== END ==
LOC: M PLAIMG 08:47
PROVIDERS: ATTEND Surgery
DX: Z91.89 Other specified personal risk factors, not elsewhere classified (principal)
CPT/HCPCS: A9576; C8908

== ENCOUNTER → 2022-11-08 | Outpatient (CLI) | payer BC, OTHER ==
[~2022-11-08] MED LIST changes: -PROHANCE 279.3MG/ML 15ML VIAL ONE
== END ==
LOC: M WHC 08:45
PROVIDERS: ATTEND Nurse Practitioner Women's Health
DX: D24.1 Benign neoplasm of right breast (principal)

== ENCOUNTER → 2024-07-13 | Outpatient (CLI) | payer BC, OTHER | LOC: M SOG 09:57 | PROVIDERS: ATTEND Physician Assistant | DX: M25.531 Pain in right wrist (principal) ==

== ENCOUNTER → 2024-07-27 | Outpatient (CLI) | payer BC, OTHER | LOC: M SOG 07:49 | PROVIDERS: ATTEND Physician Assistant | DX: M25.531 Pain in right wrist (principal) ==

== ENCOUNTER 2024-09-30 14:54 | Emergency (ER) | payer BC, OTHER ==
[~2024-09-30] VITALS: Ht 154.9 cm; Wt 68.2 kg
[2024-09-30] MEDS ORDERED: ADVICAP PO (15:05)
[2024-09-30] MEDS ORDERED: ONDA16TA PO (15:05)
[2024-09-30 16:14] LABS: BASO % 0.7 % (0.0-1.0); EOS # 0.2 10^3/uL (0.0-0.5); EOS % 2.6 % (0.0-3.0); HEMATOCRIT 39.6 % (36.0-47.0); HEMOGLOBIN 14.2 g/dl (12.0-15.5); LYMPH # 1.9 10^3/uL (1.5-5.0); MEAN CORPUSCULAR HGB CONC 35.9 g/dl (32.0-36.5); MEAN CORPUSCULAR VOLUME 89.2 fl (80.0-96.0); MONO # 0.4 10^3/uL (0.0-0.8); MONO % 7.1 % (2.0-8.0); NEUTROPHILS # 3.6 10^3/uL (1.5-8.5); NEUTROPHILS % 58.4 % (36.0-66.0); PLATELET COUNT, AUTOMATED 323 10^3/uL (150-450); RED BLOOD COUNT 4.44 10^6/uL (4.00-5.40); WHITE BLOOD COUNT 6.1 10^3/uL (4.0-10.0)
[2024-09-30] MEDS: LR 1,000 ML IV ONE (16:27)
[2024-09-30 16:35] LABS: LIPASE 32 U/L (12-53)
[2024-09-30 16:37] LABS: ALBUMIN 4.1 G/DL (3.2-5.2); ALKALINE PHOSPHATASE 52 U/L (35-104); ALT/SGPT 20 U/L (7.0-40); AST/SGOT 13 U/L (<34); BILIRUBIN,DIRECT 0.2 MG/DL (<0.4); BILIRUBIN,TOTAL 0.7 MG/DL (0.3-1.2); BLOOD UREA NITROGEN 10 MG/DL (9-23); CALCIUM LEVEL 8.8 MG/DL (8.5-10.1); CARBON DIOXIDE LEVEL 29 MMOL/L (20-31); CHLORIDE LEVEL 103 MMOL/L (98-107); GLOMERULAR FILTRATION RATE > 60.0 (>60); GLUCOSE, FASTING 86 MG/DL (60-100); POTASSIUM SERUM 3.8 MMOL/L (3.5-5.1); SODIUM LEVEL 143 MMOL/L (136-145); TOTAL PROTEIN 7.2 G/DL (5.7-8.2)
[2024-09-30] MEDS ORDERED: ONDA-282 PO (17:32)
[2024-09-30 18:06] VITALS: BP 135/92; TEMP 98.5; O2SAT 100
== END 2024-09-30 18:13 | disposition home or self-care (01) ==
LOC: M ED 14:54
DX: A08.4 Viral intestinal infection, unspecified (principal); R11.2 Nausea with vomiting, unspecified; R19.7 Diarrhea, unspecified; Z88.5 Allergy status to narcotic agent; Z79.1 Long term (current) use of non-steroidal anti-inflammatories (NSAID); Z79.899 Other long term (current) drug therapy

== ENCOUNTER → 2024-10-01 | Outpatient (REF) | payer BC, OTHER ==
[~2024-10-01] MED LIST changes: +ADVICAP PO; +ONDA-282 PO; +ONDA16TA PO
== END ==
LOC: M LAB REF 10:43
PROVIDERS: ATTEND Student in an Organized Health Care Education/Training Program
DX: R19.7 Diarrhea, unspecified (principal); A08.4 Viral intestinal infection, unspecified

== ENCOUNTER 2024-10-05 06:27 | Emergency (ER) | payer BC, OTHER ==
[~2024-10-05] VITALS: Ht 154.9 cm; Wt 67.4 kg
[2024-10-05 09:15] LABS: BASO % 0.3 % (0.0-1.0); EOS # 0.2 10^3/uL (0.0-0.5); EOS % 2.3 % (0.0-3.0); HEMATOCRIT 43.1 % (36.0-47.0); LYMPH # 1.8 10^3/uL (1.5-5.0); LYMPH % 18.2 % (24.0-44.0); MEAN CORPUSCULAR HEMOGLOBIN 31.3 pg (27.0-33.0); MEAN CORPUSCULAR HGB CONC 34.8 g/dl (32.0-36.5); MONO # 0.6 10^3/uL (0.0-0.8); MONO % 5.5 % (2.0-8.0); NEUTROPHILS # 7.3 10^3/uL (1.5-8.5); NEUTROPHILS % 73.4 % (36.0-66.0); PLATELET COUNT, AUTOMATED 324 10^3/uL (150-450); RED BLOOD COUNT 4.79 10^6/uL (4.00-5.40)
[2024-10-05] MEDS ORDERED: ONDA-282 PO (09:22)
[2024-10-05] MEDS ORDERED: BENA25CA4 PO (09:22)
[2024-10-05] MEDS ORDERED: HOME MED LIST COMPLETE! XX SCH (09:25)
[2024-10-05] MEDS ORDERED: DIFI200T (09:29)
[2024-10-05 09:54] LABS: HCG, SERUM QUALITATIVE NEGATIVE (NEGATIVE)
[2024-10-05] MEDS: NS (Normal Saline) 0.9% 1,000 ML IV ONE (10:04)
[2024-10-05 10:07] LABS: ALBUMIN 4.3 G/DL (3.2-5.2); ALKALINE PHOSPHATASE 50 U/L (35-104); ALT/SGPT 18 U/L (7.0-40); AST/SGOT 12 U/L (<34); BILIRUBIN,TOTAL 0.7 MG/DL (0.3-1.2); BLOOD UREA NITROGEN 10 MG/DL (9-23); CALCIUM LEVEL 9.4 MG/DL (8.5-10.1); CARBON DIOXIDE LEVEL 29 MMOL/L (20-31); CHLORIDE LEVEL 108 MMOL/L (98-107); CREATININE FOR GFR 0.72 MG/DL (0.55-1.30); GLOMERULAR FILTRATION RATE > 60.0 (>60); GLUCOSE, FASTING 88 MG/DL (60-100); POTASSIUM SERUM 4.7 MMOL/L (3.5-5.1); SODIUM LEVEL 143 MMOL/L (136-145); TOTAL PROTEIN 7.4 G/DL (5.7-8.2)
[2024-10-05] MEDS ORDERED: ISOVUE-370 76% 100ML VIAL As Ordered ONE (10:10)
[2024-10-05 11:30] VITALS: BP 104/55; TEMP 98.1; O2SAT 99
== END 2024-10-05 11:47 | disposition home or self-care (01) ==
LOC: M ED 06:27
DX: A09 Infectious gastroenteritis and colitis, unspecified (principal); E86.0 Dehydration; F10.10 Alcohol abuse, uncomplicated; Z88.5 Allergy status to narcotic agent; Z79.899 Other long term (current) drug therapy
CPT/HCPCS: 74177; 80053; 84703; 85025; 96360; 99284; Q9967

== ENCOUNTER → 2025-07-14 | Outpatient (REF) | payer BC, OTHER ==
[~2025-07-14] MED LIST changes: +BENA25CA4 PO; +DIFI200T
[2025-07-14 18:15] LABS: BASO # 0.0 10^3/uL (0.0-0.2); BASO % 0.6 % (0.0-1.0); EOS # 0.3 10^3/uL (0.0-0.5); EOS % 4.7 % (0.0-3.0); LYMPH # 1.7 10^3/uL (1.5-5.0); LYMPH % 25.9 % (24.0-44.0); MONO # 0.4 10^3/uL (0.0-0.8); MONO % 5.5 % (2.0-8.0); NEUTROPHILS # 4.1 10^3/uL (1.5-8.5); NEUTROPHILS % 63.0 % (36.0-66.0); PLATELET COUNT, AUTOMATED 341 10^3/uL (150-450)
[2025-07-14 18:37] LABS: ALT/SGPT 15 U/L (7.0-40); AST/SGOT 15 U/L (<34); C REACTIVE PROTEIN QUANTITATIV < 0.50 MG/DL (<1.0); CALCIUM LEVEL 8.8 MG/DL (8.5-10.1); CARBON DIOXIDE LEVEL 26 MMOL/L (20-31); CHLORIDE LEVEL 101 MMOL/L (98-107); CREATININE FOR GFR 0.76 MG/DL (0.55-1.30); GLOMERULAR FILTRATION RATE > 90.0 (>60); POTASSIUM SERUM 4.7 MMOL/L (3.5-5.1); SODIUM LEVEL 137 MMOL/L (136-145)
[2025-07-14 18:38] LABS: IRON (FE) 72 UG/DL (50-170); PERCENT SATURATION 27.2 % (13.2-45.0)
[2025-07-14 18:39] LABS: FREE T4 1.44 NG/DL (0.89-1.76)
[2025-07-14 18:40] LABS: VITAMIN B12 LEVEL 667 PG/ML (211-911)
== END ==
LOC: M LAB REF 17:47
PROVIDERS: ATTEND Physician Assistant
DX: R42 Dizziness and giddiness (principal); Z13.29 Encounter for screening for other suspected endocrine disorder